=== PATIENT | female | born 1975 | race Two or more races ===

== ENCOUNTER → 2024-01-26 15:50 | Outpatient (REF) | payer BC, SELFPAY | LOC: WDC 15:50 | PROVIDERS: ATTENDING PHYSICIAN Obstetrics & Gynecology | DX: Z12.31 Encounter for screening mammogram for malignant neoplasm of breast (principal) | CPT/HCPCS: 77063; 77067 ==

== ENCOUNTER → 2024-06-25 07:00 | Outpatient (REF) | payer BC, SELFPAY | LOC: MRI 3T 07:00 | PROVIDERS: ATTENDING PHYSICIAN Student in an Organized Health Care Education/Training Program; FAMILY PHYSICIAN Student in an Organized Health Care Education/Training Program | DX: M17.12 Unilateral primary osteoarthritis, left knee (principal); R26.2 Difficulty in walking, not elsewhere classified | CPT/HCPCS: 73721 ==

== ENCOUNTER → 2025-02-15 08:39 | Outpatient (REF) | payer BC, SELFPAY | LOC: WDC 08:39 | PROVIDERS: ATTENDING PHYSICIAN Obstetrics & Gynecology; FAMILY PHYSICIAN Family Medicine | DX: Z12.31 Encounter for screening mammogram for malignant neoplasm of breast (principal) | CPT/HCPCS: 77063; 77067 ==